=== PATIENT | male | born 1950 | race Caucasian/White ===

== ENCOUNTER 2018-11-15 13:03 | Observation (INO) | payer MEDICARE, OTHER, BC ==
--- NOTE | 2018-11-02 14:12 | HP ---
HISTORY AND PHYSICAL: DATE OF SURGERY: 11/15/18 DATE OF OFFICE VISIT: 11/02/18 SURGEON: Chacha Carrera MD.* (DICTATED BY ARPITA EDUARDO) PROCEDURE: Right total knee arthroplasty. CHIEF COMPLAINT: Right knee pain. HISTORY OF PRESENT ILLNESS: Mr. Royal is a 68-year-old gentleman with continued complaints of right knee pain despite conservative treatment. He has elected to proceed with the right total knee arthroplasty. PAST MEDICAL HISTORY: AFib, hypertension, high cholesterol, depression, GERD, melanoma stage 1A and sleep apnea. PAST SURGICAL HISTORY: Tonsillectomy, hernia repair, vasectomy, right ankle surgery, hydrocele surgery, right shoulder replacement, and cardioversion. CURRENT MEDICATIONS: 1. Vitamin B6. 2. Xarelto 20 mg a day. 3. Tikosyn 500 mcg 1 capsule twice a day. 4. Potassium chloride is 10 mEq daily. 5. Irbesartan 300 mg a day. 6. Atenolol 25 mg twice a day. 7. Nexium 40 mg daily. 8. Vitamin C. 9. Vitamin D3. 10. Vitamin B12. 11. Rosuvastatin calcium 5 mg a day. 12. Duloxetine 60 mg daily. ALLERGIES: No known drug allergies. FAMILY HISTORY: Diabetes, coronary artery disease, cancer, and ITP. SOCIAL HISTORY: He is a 68-year-old gentleman who lives with his . He does not smoke or use drugs. REVIEW OF SYSTEMS: A complete 14-point review of systems was reviewed with the patient. It was positive GERD. He denies the history of DVT, PE, hepatitis, HIV , or anesthesia problems. PHYSICAL EXAMINATION GENERAL: He is a well developed, well nourished, in no acute distress. VITAL SIGNS: He stands 75 inches tall, weighs 309 pounds. His blood pressure is 118/88, and his heart rate is 70. HEENT: Normocephalic, atraumatic. NECK: Supple. No palpable lymph nodes. PULMONARY: The lungs are clear to auscultation bilaterally. CARDIAC: Regular rate and rhythm. Strong S1 and S2. ABDOMEN: The abdomen is soft, nontender, and nondistended. NEUROLOGICAL: He is alert and oriented x3. MUSCULOSKELETAL: Right lower extremity: The skin is intact. There is no open wounds or abrasions. There is moderate effusion of the right knee joint and there is a varus deformity. Range of motion is 10 to 125 degrees of flexion with patellofemoral crepitus. He has tenderness along the medial joint line. His calf is soft and nontender. He is able to dorsiflex and plantar flex and has a 2+ dorsalis pedis pulse. ASSESSMENT AND PLAN: Mr. Royal is a 68-year-old gentleman with endstage osteoarthritis of the right knee. He has failed conservative treatment and elected to proceeded with the right total knee arthroplasty. The surgery is scheduled for 11/15/[address] Carrera discussed the risks and benefits of the surgery at today's visit and all of his questions were answered. He will follow up with Dr. Carrera 2 weeks after the surgery. He was instructed to stop his Xarelto on 11/11/18. ARPITA EDUARDO [id number]/[facility] #: [id number] MTDElena
[~2018-11-15 13:03] MED LIST: Buffered Lidocaine 1% SYRIN* 1 ML/SYRINGE INTRADERM ONE; Dexamethasone IV* 4 MG/ML 1 ML (4 MG) IV SLOW PU ONE; Famotidine IV* 10 MG/ML 2 ML (20 mg) IV ONE; Gabapentin CAP(*) 300 MG PO ONE; Lactated Ringers 1000 ML Bag* 1,000 ML IV SCH; Midazolam* 1 MG/ML 2 ML VIAL (2 MG) ONE; Tranexamic Acid 1,000 MG in NS 0.9% 50 ML* (outpatient use) IV SCH; celeCOXIB CAP* 200 MG PO ONE; fentaNYL* 50 MCG/ML 2 ML VIAL (100 MCG VIAL) ONE
[2018-11-15] MEDS ORDERED: Dexamethasone IV* 4 MG/ML 1 ML (4 MG) ONE (13:24)
[2018-11-15] MEDS ORDERED: Famotidine IV* 10 MG/ML 2 ML (20 mg) ONE (13:25)
[2018-11-15] MEDS ORDERED: celeCOXIB CAP* 200 MG ONE (13:25)
[2018-11-15] MEDS ORDERED: ceFAZolin 2 GM in NS PREMIX(*) 2 GM/100 ML BAG IVPB ONE (13:25)
[2018-11-15] MEDS ORDERED: Buffered Lidocaine 1% SYRIN* 1 ML/SYRINGE INTRADERM ONE (13:25)
[2018-11-15] MEDS ORDERED: Gabapentin CAP(*) 300 MG ONE (13:25)
[2018-11-15] MEDS ORDERED: ceFAZolin 1 GM ADVAN(*) 1 GM ADDV.VIAL IVPB ONE (13:25)
[2018-11-15] MEDS ORDERED: ROPIVACAINE 5 MG/ML 30 ML BTL (0.5%) ONE ×2 (13:56→14:34)
[2018-11-15] MEDS ORDERED: Lidocaine 1% MPF ** 5 ML VIAL ONE (13:56)
[2018-11-15] MEDS ORDERED: Midazolam* 1 MG/ML 2 ML VIAL (2 MG) ONE (15:08)
[2018-11-15] MEDS ORDERED: EPHEDrine (Pressors)* 50 MG/ML VIAL ONE ×2 (16:03→18:03)
[2018-11-15] MEDS ORDERED: Phenylephrine 40 MCG/ML SYRINGE ONE (16:25)
[2018-11-15] MEDS ORDERED: Acetaminophen IV 1GM/100ML * 1,000 MG/100 ML VIAL IVPB ONE (18:05)
[2018-11-15] MEDS ORDERED: Naloxone* 0.4 MG/ML 1 ML VIAL IV PRN (18:05)
[2018-11-15] MEDS ORDERED: DiMENhydriNATE IV* 50 MG/ML VIAL IV PUSH PRN (18:05)
[2018-11-15] MEDS ORDERED: HYDROmorphone INJ1* 1 MG/ML SYRINGE IV PRN (18:05)
[2018-11-15] MEDS ORDERED: traMADol TAB* 50 MG PO PRN (18:33)
[2018-11-15] MEDS ORDERED: Magnesium Hydroxide LIQ* 30 ML UDC PO PRN (18:33)
[2018-11-15] MEDS ORDERED: Cyclobenzaprine TAB* 10 MG PO PRN (18:33)
[2018-11-15] MEDS ORDERED: Morphine INJ* 2 MG/ML 1 ML SYRINGE (TWO MG - NEW SYRINGE VERSION) IV PRN (18:33)
[2018-11-15] MEDS ORDERED: Temazepam CAP* 15 MG PO PRN (18:33)
[2018-11-15] MEDS ORDERED: diPHENhydraMINE IV* 50 MG/ML 1 ml VIAL (BENADRYL) IV PRN (18:33)
[2018-11-15] MEDS ORDERED: oxyCODONE/Acetamin 5/325 MG* TAB PO PRN (18:33)
[2018-11-15] MEDS ORDERED: Ondansetron INJ* 2 MG/ML VIAL IV PRN (18:33)
[2018-11-15] MEDS ORDERED: oxyCODONE TAB* 5 MG TAB PO PRN (18:33)
[2018-11-15] MEDS ORDERED: Bisacodyl SUPP* 10 MG SUPP PR PRN (18:33)
[2018-11-15] MEDS ORDERED: Lactated Ringers 1000 ML Bag* 1,000 ML IV SCH (19:00)
--- NOTE | 2018-11-15 20:03 | OP ---
Operative Report - Blank - Operative Report Date of Operation: 11/15/18 Note: RANJIT LAZARO 1950 Date of Surgery: 11/15/18 Chacha Carrera MD Associate Professor Of Theatre: Iam PALM did help throughout the procedure with preparation of the knee, wound retraction, manipulation of the knee, and wound closure. Anesthesiologist: Dr. Price Anesthesia Type: Spinal Preoperative Diagnosis: Right severe degenerative osteoarthritis of the knee Postoperative Diagnosis: As above Procedure Performed: Right Total Knee Arthroplasty Tourniquet time: 56 minutes Complications: None Specimen: Bone and cartilage from the Right knee joint sent to pathology. Hardware Used: Cemented Olivarez and Nephew total knee hardware was used - For the femur a size 8 right legion posterior stabilized femoral component, for the tibia a size 8 right raymond II tibial baseplate, for the insert a size 9mm 7-8 posterior stabilized articular polyethylene insert, and for the patella a size 38 3-peg all poly patella. Brief History/Indication: RANJIT LAZARO was known in clinic and had a history of severe right knee pain and swelling. He failed conservative treatment with anti-inflammatories, pain pills, intra-articular injections and physical therapy. He elected to undergo right total knee arthroplasty due to continued pain and decreased quality of life. Radiographs showed severe end stage osteoarthritis of the knee with bone on bone contact. Informed consent was obtained from the patient. He understood the risks of surgery included but were not limited to: bleeding, infection, damage to nearby structures, intraoperative fracture, nerve palsy, failure of the hardware, early loosening, knee stiffness or loss of motion, anesthesia complications, stroke, heart attack , blood clot and . He wished to proceed. Intra-Operative Findings: Intraoperatively the patient was noted to have severe loss of cartilage in all 3 compartments of the knee. Description of the Procedure: RANJIT LAZARO was identified in the preanesthesia unit. His right knee was marked as the correct operative side. Informed consent was signed and placed in the chart. The patient was taken to the operating room and placed under anesthesia without complication. A baptiste catheter was placed. A tourniquet was placed on the right thigh. The right lower extremity was prepped and draped in the usual sterile fashion. Preoperative time-out was made to correctly identify the patient, side and site. Appropriate intraoperative antibiotics were given within one hour of incision. Tourniquet was inflated. A midline incision was made and carried sharply down to the extensor mechanism. A new 10 blade was used to make a standard medial parapatellar arthrotomy. The patella was subluxed laterally. Electrocautery was used to dissect soft tissue off the superomedial tibia to the midsagittal plane. The knee was flexed up. The anterior horn of the lateral meniscus and the ACL were sharply incised. A drill was used to enter the distal femur. The intramedullary distal femoral cutting guide was pinned on the distal femur. The oscillating saw was used to make the distal femoral cut. The external rotation guide was pinned on the distal femur and the distal femur was sized to a size 8. The size 8 multi-cutting jig was pinned on the distal femur. The oscillating saw was used to make the appropriate 4 chamfer cuts. Next the PCL was completely released. The extramedullary tibial cutting guide was pinned on the proximal tibia and the oscillating saw was used to make the proximal tibial cut perpendicular to the mechanical axis of the tibia. The bone was carefully removed. The knee was brought out into full extension. The spacer block was placed and had excellent fit with the knee in full extension. The medial and lateral ligaments were well balanced. The flexion and extension gaps were well balanced. The knee was flexed up. Lamina vault worker was placed both medially and laterally. Any remaining meniscus was removed with electrocautery. Curved osteotome was used to remove any posterior osteophytes. The tibial tray and drop suzan were placed and confirmed a satisfactory tibial cut. The size 8 right femoral trial was impacted onto the distal femur. This trial had excellent fit and stability. The box for the posterior stabilized implant was prepared using a box cut osteotome and a reamer. Next a tibial tray trial and 9 mm insert trial was placed. The knee was taken through a range of motion and had full extension to 130 degrees of flexion. Patellofemoral tracking was satisfactory. The patella was inverted and sized to a size 38. Three peg holes were drilled through the size 38 drill guide. The trial patella was placed and the knee was taken through a range of motion. There was satisfactory patellofemoral tracking. All trials were removed. The tibia was subluxed anteriorly and sized to a size 8. The proximal tibial was prepared with a size 8 keel punch. All bony cut surfaces were irrigated with sterile saline and dried. Final implants were cemented into place starting with the tibia, followed by the femur, and last the patella. A 9 mm insert trial was placed and the knee was brought into full extension. Tourniquet was turned down and the knee was copiously irrigated with sterile saline. Electrocautery was used to obtain meticulous hemostasis. Once the cement had fully cured, the insert trial was removed. Any excess cement was removed from around the hardware and capsule. Final insert chosen was a 9 mm posterior stabilized Raymond II articular insert size 7-8. Stability of the insert was checked and noted to be stable. The extensor mechanism was closed using number 1 vicryls. The rest of the incision was closed in a layered fashion using 0 and 2-0 vicryls. The skin was closed using 3-0 nylon suture. Sterile xeroform, 4x4s and webril were used to cover the incision. Tom wrap and cold pack were used to cover the dressings. The patients anesthesia was reversed without difficulty. He was taken to the PACU in stable condition. Intended weight-bearing will be as tolerated.
[2018-11-15] MEDS ORDERED: Atenolol TAB* 25 MG PO SCH (21:00)
--- NOTE | 2018-11-15 21:10 | CONS ---
[facility] MEDICINE CONSULTATION REPORT: DATE OF CONSULT: 11/15/18 PROVIDER: Jackie Melendez NP ATTENDING PHYSICIAN: Dr. Carrera. CONSULTING PHYSICIAN: Gareth Del Rosario MD (dictated by Jackie Melendez NP). REASON FOR CONSULT: Co-management of chronic medical conditions. HISTORY OF PRESENT ILLNESS: Mr. Royal is a 68-year-old male with a past medical history significant for hypertension; atrial fibrillation, on chronic Xarelto; hyperlipidemia; depression; GERD; stage I melanoma, status post removal; sleep apnea, who presented to [facility] for an elective right total knee arthroplasty with Dr. Carrera. Please see dictated H and P from ARPITA Peterson for complete details. In brief, the patient had an ongoing pain, failed conservative measures. Therefore, opted for right total knee arthroplasty with Dr. Carrera. In the immediate postoperative period, the patient has no complaints. He denies any pain. He denies any recent fever, chills, nausea, vomiting, diarrhea. Denies any abdominal pain. Denies any chest pain or shortness of breath. Denies cough or congestion. Due to his history of atrial fibrillation , hypertension, hyperlipidemia, and sleep apnea, we were asked to see the patient in consultation. PAST MEDICAL HISTORY: Significant for: 1. Hypertension. 2. AFib. 3. Hyperlipidemia. 4. Depression. 5. GERD. 6. Melanoma, stage I of the head status post removal. 7. Sleep apnea. PAST SURGICAL HISTORY: 1. Tonsillectomy. 2. Hernia repair. 3. Vasectomy. 4. Right ankle surgery. 5. Hydrocele surgery. 6. Right shoulder replacement. 7. Cardioversion. MEDICATIONS: Home medications include: 1. Vitamin B6. 2. Xarelto 20 mg p.o. daily. 3. Tikosyn 500 mcg p.o. b.i.d. 4. Potassium 10 mEq p.o. daily. 5. Atenolol 25 mg p.o. b.i.d. 6. Nexium 40 mg p.o. daily. 7. Vitamin C. 8. Vitamin D. 9. Vitamin B12. 10. Rosuvastatin 5 mg p.o. daily. 11. Duloxetine 60 mg p.o. daily. ALLERGIES: No known drug allergies. FAMILY HISTORY: Significant for diabetes, coronary artery disease. SOCIAL HISTORY: The patient denies any tobacco or illicit drug use. He does report occasional alcohol use. Surrogate decision maker in the event he is unable to make his own decisions is his , Hien. He is a full code. REVIEW OF SYSTEMS: An 11-point review of systems was completed. All pertinent positives are mentioned in the HPI, otherwise were negative. PHYSICAL EXAM: Vital Signs: Blood pressure was 112/77, heart rate is 62, respirations 16, O2 saturation 98% on room air, temperature was 97.7. HEENT: Head is atraumatic, normocephalic. Eyes: EOMs are intact. Sclerae anicteric and not pale. Oral mucosa appeared to be moist. Neck is supple. Lungs are clear to auscultation bilaterally. No wheezes, rales, or rhonchi. Cardiac: S1 , S2. Regular rate and rhythm. No murmurs, rubs, or gallops. Abdomen is soft and nontender. Bowel sounds are present x4. Extremities: He does have a dressing that is dry and intact to his right knee. Pedal pulses are +2 bilaterally. There is no clubbing or cyanosis. Neurologic: He is awake, alert , oriented x3. Speech is clear. Thought process is intact. There are no gross focal deficits. DIAGNOSTIC STUDIES/LAB DATA: CBC from 11/02/18, WBCs are 5.7, RBCs 5.32, hemoglobin 14.9, hematocrit 45, platelet count 157. INR was 1.38. Sodium 141, potassium 4.3, chloride 106, carbon dioxide was 31, anion gap was 4, BUN was 19 , creatinine 0.76, glucose was 92. Magnesium 2.1. ASTs were 30, ALTs were 33, alkaline phosphatase 79. IMPRESSION AND PLAN: Mr. Royal is a 68-year-old male with a past medical history significant for hypertension; atrial fibrillation, on chronic anticoagulation; hyperlipidemia; depression; GERD; history of stage I melanoma; and sleep apnea who presented for an elective right total knee arthroplasty with Dr. Carrera. In the immediate postoperative period, the patient has no complaints. Our recommendations are as follows: 1. Status post right total knee arthroplasty. Management per Orthopedics. PT/ OT per Orthopedics. Bowel regimen per Orthopedics. DVT prophylaxis per Orthopedics. Pain management per Orthopedics. 2. Atrial fibrillation. The patient should continue on his Tikosyn 500 mcg p.o. b.i.d. as previously prescribed at home. He should resume Xarelto as soon as possible, scheduled to start on 11/16/18. He will be placed on telemetry and he can resume his atenolol tomorrow morning. I will check a BMP this evening with a magnesium level prior to giving him his Tikosyn. 3. Hypertension. He should continue his atenolol 25 b.i.d. 4. Hyperlipidemia. He should continue on his rosuvastatin 5 mg p.o. daily. 5. Gastroesophageal reflux disease. He should continue on Nexium 40 mg p.o. daily. 6. DVT prophylaxis. He will resume Xarelto tomorrow morning. 7. Diet. He should have a heart healthy diet. 8. Code status. He is a full code. TIME SPENT: Time spent on this consultation was approximately 45 minutes, greater than half the time was spent at the bedside reviewing the events leading thus far to this hospitalization, performing physical exam, and reviewing my plan of care I have discussed this with my attending, Dr. Gareth Del Rosario, he is in agreement with my plan. JACKIE MELENDEZ, ARNALDO [id number]/[facility] #: [id number] TANISHA
[2018-11-15] MEDS: Docusate CAP* 100 MG PO SCH (21:31)
[2018-11-15] MEDS: Magnesium Hydroxide LIQ* 30 ML UDC PO SCH (21:31)
[2018-11-15] MEDS: Ferrous Sulfate TAB* 325 MG PO SCH (21:31)
[2018-11-15] MEDS: Dofetilide CAP* 500 MCG PO SCH (21:35)
[2018-11-15] MEDS: Acetaminophen TAB* 325 MG PO SCH (21:35)
[2018-11-15] MEDS: ceFAZolin 1 GM ADVAN(*) 1 GM in NS 0.9% 50 ML* 50 ML IVPB SCH (23:36)
[2018-11-16] MEDS: Acetaminophen TAB* 325 MG PO SCH ×2 (05:57→13:25)
[2018-11-16 05:58] LABS: Hematocrit 37 % (42-52); Hemoglobin 12.5 g/dL (14.0-18.0); Mean Platelet Volume 8.4 fL (7.4-10.4); Platelet Count 144 10^3/uL (150-450)
[2018-11-16 06:08] LABS: BUN/Creatinine Ratio 20.3 (8-20); Calcium 8.9 mg/dL (8.6-10.3); EGFR African American 117.7 (>60); EGFR Non-African American 97.2 (>60); Magnesium 1.7 mg/dL (1.9-2.7); Potassium 4.1 mmol/L (3.5-5.0)
[2018-11-16] MEDS ORDERED: Rivaroxaban TAB(*) 20 MG TAB PO SCH (08:30)
[2018-11-16] MEDS ORDERED: Ascorbic Acid TAB* 500 MG PO SCH (09:00)
[2018-11-16] MEDS ORDERED: Pantoprazole TAB * 40 MG TAB PO SCH (09:00)
[2018-11-16] MEDS ORDERED: Cholecalciferol TAB* 1000 UNITS PO SCH (09:00)
[2018-11-16] MEDS ORDERED: Atenolol TAB* 25 MG PO SCH (09:00)
[2018-11-16] MEDS ORDERED: Vitamin THERAPEUTIC TAB PO SCH (09:00)
[2018-11-16] MEDS ORDERED: Atorvastatin* 10 MG TAB PO SCH (09:00)
[2018-11-16] MEDS ORDERED: Losartan TAB* 25 MG PO SCH (09:00)
[2018-11-16] MEDS ORDERED: Potassium Chlor TAB* 10 MEQ TAB.ER PO SCH (09:00)
[2018-11-16] MEDS ORDERED: DULoxetine DR CAP* 60 MG CAP.DR PO SCH (09:00)
[2018-11-16] MEDS ORDERED: Cyanocobalamin TAB* 500 MCG PO SCH (09:00)
[2018-11-16] MEDS: ceFAZolin 1 GM ADVAN(*) 1 GM in NS 0.9% 50 ML* 50 ML IVPB SCH ×2 (09:05→15:40)
[2018-11-16] MEDS: Ferrous Sulfate TAB* 325 MG PO SCH (09:05)
[2018-11-16] MEDS: oxyCODONE/Acetamin 5/325 MG* TAB PO PRN ×3 (09:06→18:45)
[2018-11-16] MEDS: Docusate CAP* 100 MG PO SCH (09:06)
[2018-11-16] MEDS: Dofetilide CAP* 500 MCG PO SCH (09:10)
[2018-11-16] MEDS: Magnesium Hydroxide LIQ* 30 ML UDC PO SCH (09:10)
--- NOTE | 2018-11-16 13:11 | PN ---
Progress Note - Progress Note Date of Service: 11/16/18 SOAP: Subjective: []Pt seen and examined at bedside. He feels well without CP, SOB, dizziness, nausea. Feels well but has 12 stairs per flight with 3 flights each at home. Objective: [] Gen: Appears well, NAD RLE: Right knee dressing CDI, thigh soft, DF/PF intact, DP2+, sensation intact to light touch distally Calves supple and nontender without erythema, edema or palpable cords Assessment: [] POD 1 sp right total knee replacement Plan: []WBAT PT/OT eliquis 2.5 mg po BID DC home today or tomorrow - depends how well he does with PT considering home environment with many stairs Vital Signs Temp 98.1 F 11/16/18 11:14 Pulse 73 11/16/18 11:14 Resp 16 11/16/18 11:14 BP 136/88 11/16/18 11:14 Pulse Ox 94 11/16/18 11:14 Intake & Output 11/15/18 11/16/18 11/16/18 18:59 06:59 18:59 Intake Total 1960 590 Output Total 3100 200 Balance -1140 390 Weight 305 lb 6.4 oz Intake: Oral 1960 590 Output: Urine 1000 200 Zavala 2100 Other: # Bowel Movements 0 Laboratory Last Values Hgb 12.5 g/dL (14.0-18.0) L 11/16/18 05:10 Hct 37 % (42-52) L 11/16/18 05:10 Plt Count 144 10^3/uL (150-450) L 11/16/18 05:10 MPV 8.4 fL (7.4-10.4) 11/16/18 05:10 Sodium 138 mmol/L (135-145) 11/16/18 05:10 Potassium 4.1 mmol/L (3.5-5.0) 11/16/18 05:10 Chloride 106 mmol/L (101-111) 11/16/18 05:10 Carbon Dioxide 25 mmol/L (22-32) 11/16/18 05:10 Anion Gap 7 mmol/L (2-11) 11/16/18 05:10 BUN 16 mg/dL (6-24) 11/16/18 05:10 Creatinine 0.79 mg/dL (0.67-1.17) 11/16/18 05:10 Est GFR ( Amer) 117.7 (>60) 11/16/18 05:10 Est GFR (Non-Af Amer) 97.2 (>60) 11/16/18 05:10 BUN/Creatinine Ratio 20.3 (8-20) H 11/16/18 05:10 Glucose 173 mg/dL (70-100) H 11/16/18 05:10 Calcium 8.9 mg/dL (8.6-10.3) 11/16/18 05:10 Magnesium 1.7 mg/dL (1.9-2.7) L 11/16/18 05:10
[2018-11-16 15:53] VITALS: BP 134/63
[2018-11-16] MEDS ORDERED: Pyridoxine TAB* 50 MG PO SCH (18:00)
--- NOTE | 2018-11-16 18:08 | DS ---
Orthopedic Discharge Summary - Discharge Summary Date of Admission:11/15/18 Date of Discharge: 11/16/18 Date of Surgery: 11/15/18 Attending Orthopedic Provider: Dr Carrera Pre-operative Diagnosis: right knee osteoarthritis Operative Procedure: right total knee replacement Disposition of Patient: home Condition of Patient: stable History: RANJIT LAZARO is a 68 year old M with years of increasingly severe right knee pain. Patient has failed conservative management and has elected to undergo a right total knee replacement Hospital Course: RANJIT was admitted to [facility] on 11/15/18. Patient underwent a right total knee replacement without complication followed by a brief recovery in PACU and transfer to the Short Stay Surgical Unit in stable condition. Our hospitalist service, physical therapy and occupational therapy also participated in this patients care. Post-op day 1: patient was alert and in no acute distress. Dressing was changed, incision was clean, dry and intact. Operative extremity dorsiflexion and plantarflexion intact, sensation intact to light touch distally. Patient was deemed to be medically and orthopedically stable for discharge. Physical therapy goals were met. Home Medications Medication Instructions Recorded Confirmed Type Atenolol TAB* [Tenormin TAB* 25 MG] 25 mg PO BID 02/26/12 11/15/18 History Dofetilide CAP* [Tikosyn CAP*] 0.5 mg PO BID 09/02/12 11/15/18 History Rivaroxaban TAB(*) [Xarelto 20 mg] 20 mg PO QAM 06/30/16 11/15/18 History Acetaminophen TAB* [Tylenol TAB*] 3 tab PO ONCE PRN 11/02/18 11/15/18 History Ascorbic Acid TAB* [Vitamin C 1,000 mg PO QAM 11/02/18 11/15/18 History TAB*] Cholecalciferol CAP/TAB(NF) 5,000 unit PO QAM 11/02/18 11/15/18 History [Vitamin D3 CAP/TAB (NF)] Cyanocobalamin TAB* [Vitamin B12 1,000 mcg PO QAM 11/02/18 11/15/18 History TAB*] DULoxetine DR CAP* [Cymbalta CAP*] 60 mg PO QAM 11/02/18 11/15/18 History Esomeprazole Magnesium [Nexium] 40 mg PO QAM 11/02/18 11/15/18 History Irbesartan 300 mg PO QAM 11/02/18 11/15/18 History Potassium Chloride [Klor-Con 10] 10 meq PO QAM 11/02/18 11/15/18 History Pyridoxine TAB* [Vitamin B6 TAB*] 100 mg PO QPM 11/02/18 11/15/18 History Rosuvastatin Calcium 5 mg PO QAM 11/02/18 11/15/18 History Acetaminophen TAB* [Tylenol TAB*] 975 mg PO Q8H tab 11/16/18 Rx Docusate CAP* [Colace Cap*] 100 mg PO BID PRN #90 cap 11/16/18 Rx oxyCODONE/Acetamin 5/325 MG* 1 tab PO Q4H PRN tab MDD 10 11/16/18 Rx [Percocet 5/325 TAB*] oxyCODONE/Acetamin 5/325 MG* 2 tab PO Q4H PRN #70 tab MDD 10 11/16/18 Rx [Percocet 5/325 TAB*] Discharge Instructions following Orthopedic Surgery: Activity: * Weight Bearing as tolerated * Continue physical therapy and occupational therapy exercises as shown * Home PT Wound care: * OK to shower on post-op day 3, no bathing, swimming, or submerging wound. * Use gentle soap, pat dry. Cover with gauze, KATHRYN wrap or tape. * Visiting home nurse to do wound checks. Call Orthopedic office for: * Increased drainage * Redness * Increased pain * Fever Go to ER with shortness of breath or chest pain. Diet: * Regular diet * Increase fluids and fiber to prevent constipation. * Continue to use stool softeners, call office if no bowel motion within 48 hours. Medications See Home Medication List in your packet for medications that you should take after discharge. DVT Prophylaxis: Xarelto resume usual home dosing Pain Control: Percocet Dosin/325 mg 1-2 tabs by mouth every 4-6 hours as needed for pain. Maximum of 10 tabs per day. Hold for sedation. Wean off as soon as pain allows Please note that Percocet contains Tylenol (acetaminophen). Maximum daily dose of Tylenol is 4000 mg from all sources. Antibiotics are required prior to any dental work. FOLLOW UP: Follow up with Dr. Coy] Within 10-14 days, call for appointment Please call our office with any questions or concerns ([phone])
[2018-11-16] MEDS ORDERED: Magnesium Sulfate 1 GM IV* 1 GM/100 ML BAG IV ONE (18:44)
--- NOTE | 2018-11-16 18:47 | PN ---
Hospitalist Progress Note Date of Service: 11/16/18 Chart reviewed, patient is POD1 total knee, VS stable, no acute overnight events. Magnesium slightly low, will replete with 1 gm IV. Will continue to follow distantly. Plan per ortho is for patient to be discharged tomorrow.
== END 2018-11-16 19:00 | disposition home or self-care (01) ==
LOC: AA 13:03 → INTOOBSV 13:03 → SSU 20:16
PROVIDERS: ADMIT Orthopaedic Surgery Adult Reconstructive Orthopaedic Surgery; ATTEND Orthopaedic Surgery Adult Reconstructive Orthopaedic Surgery
DX: M17.11 Unilateral primary osteoarthritis, right knee (principal); Z79.899 Other long term (current) drug therapy; I10 Essential (primary) hypertension; E78.00 Pure hypercholesterolemia, unspecified; I48.0 Paroxysmal atrial fibrillation; K21.9 Gastro-esophageal reflux disease without esophagitis; G47.30 Sleep apnea, unspecified; C43.9 Malignant melanoma of skin, unspecified; Z79.01 Long term (current) use of anticoagulants; E78.2 Mixed hyperlipidemia; F32.0 Major depressive disorder, single episode, mild
CPT/HCPCS: 36415; 80048; 83735; 85014; 85018; 85049; 96374; 96376; A9270-GY; C1776; G0378; G8978-GP-CJ; G8979-GP-CI; J0690; J1100; J2250; J2270; J2795; J3010; J3475

== ENCOUNTER 2019-05-12 17:06 | Emergency (ER) | payer MEDICARE, BC, OTHER ==
[2019-05-12 18:47] LABS: ABS Eosinophils 0.2 10^3/ul (0-0.6); ABS Lymphocytes 1.3 10^3/ul (1.0-4.8); ABS Monocytes 0.6 10^3/ul (0-0.8); ABS Neutrophils 3.8 10^3/ul (1.5-7.7); Eosinophil % 4.1 %; Hematocrit 45 % (42-52); Lymphocyte % 21.4 %; Mean Corpuscular HGB Conc 33 g/dL (31-36); Mean Corpuscular Hemoglobin 28 pg (27-31); Mean Corpuscular Volume 83 fL (80-94); Mean Platelet Volume 8.1 fL (7.4-10.4); Nucleated Red Blood Cells % 0.1; Platelet Count 189 10^3/uL (150-450); Red Blood Count 5.41 10^6 /uL (4.18-5.48); Red Cell Distribution Width 17 % (10-15); White Blood Count 5.9 10^3/uL (3.5-10.8)
[2019-05-12 18:58] LABS: Albumin/Globulin Ratio 1.3 (1-3); BUN/Creatinine Ratio 19.8 (8-20); Calcium 9.1 mg/dL (8.6-10.3); EGFR African American 99.7 (>60); EGFR Non-African American 82.4 (>60); Globulin 3.2 g/dL (2-4); Magnesium 1.9 mg/dL (1.9-2.7); Total Bilirubin 0.8 mg/dL (0.2-1.0); Total Protein 7.2 g/dL (6.4-8.9)
[2019-05-12 19:00] LABS: Troponin I 0.01 ng/mL (<0.03)
--- NOTE | 2019-05-12 19:33 | ED ---
HPI Cardiac - HPI Summary HPI Summary: 69 y/o male presented to [facility] complaining of an episode of suspected afib beginning 04/24/19. In addition to a "feeling like [he] is in Afib," he is feeling nauseous and hungry. Pt denies pain, SOB, swelling, CHF symptoms, changes in eating/drinking and fever. He notes he can exert himself at baseline , citing the example of being able to walk up and down stairs. Pt has a Hx of Afib since his first episode in October of 1991 and has been cardioverted 5-6 times between and 2009. He notes he has occasional 24-36 hour episodes that revert without assistance. He was recommended by Dr. Cesar to go to the ER if he was in Afib for more than 36 hours, and another physician told him not to go into the ER if the Afib was not bothering him. He states that when he is in Afib he is not bothered by it and can go to work normally, noting that his work is on a computer and does not require physical exertion. 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 Pt notes Hx of Afib (above), HTN, GERD, sleep apnea, depression, hypokalemia, past surgical history: knee replacement 6 months ago, a vasectomy when he was 4 , a tonsillectomy, right shoulder replacement, and a talus Fx. Pt takes Tikosyn, Nexium, Xarelto, Avapro, Tylenol, and uses a CPAP machine. Pt notes FHx of sleep apnea and Afib. He does not smoke or use marijuana and consumes about 1 beer per week. - History of Current Complaint Chief Complaint: EDDysrhythmPalp Stated Complaint: AFIB PER PT Time Seen by Provider: 05/12/19 19:26 Hx Obtained From: Patient Onset/Duration: Started Weeks Ago, Still Present Timing: Constant Current Severity: None Pain Intensity: 0 Pain Scale Used: 0-10 Numeric Character: Irregular Aggravating Factor(s): Nothing Associated Signs and Symptoms: Positive: Nausea, Other: - positive - hunger; negative - decreased oral intake, swelling, CHF symptoms. Negative: Shortness of Breath, Fever Related History: Similar Episode/Dx as: - Afib - Additional Pertinent History Primary Care Physician: [id number] - Allergy/Home Medications Allergies/Adverse Reactions: Allergies Allergy/AdvReac Type Severity Reaction Status Date / Time No Known Allergies Allergy Verified 05/12/19 17:40 Home Medications: Home Medications Acetaminophen [Acetaminophen Extra Strength] 1,000 mg PO Q4HR PRN 05/12/19 [ History Confirmed 05/12/19] Dofetilide CAP* [Tikosyn CAP*] 500 mcg PO BID 05/12/19 [History Confirmed ] Esomeprazole(NF) [NexIUM(NF)] 40 mg PO DAILY 05/12/19 [History Confirmed ] Irbesartan (NF) [Avapro (NF)] 300 mg PO DAILY 05/12/19 [History Confirmed ] Potassium Chlor TAB* [Klor Con ER TAB*] 10 meq PO DAILY 05/12/19 [History Confirmed 05/12/19] Rosuvastatin (NF) [Crestor (NF)] 5 mg PO DAILY 05/12/19 [History Confirmed 05/12] metroNIDAZOLE * [Flagyl] 500 mg PO Q8H PRN 05/12/19 [History Confirmed 05/12/19] PMH/Surg Hx/FS Hx/Imm Hx Previously Healthy: Yes Endocrine/Hematology History: Reports: Hx Anticoagulant Therapy Cardiovascular History: Reports: Hx Atrial Fibrillation, Hx Hypercholesterolemia , Hx Hypertension Denies: Hx Pacemaker/ICD, Other Cardiovascular Problems/Disorders Respiratory History: Reports: Hx Sleep Apnea Denies: Other Respiratory Problems/Disorders GI History: Reports: Hx Gastroesophageal Reflux Disease, Hx Hiatal Hernia Denies: Other GI Disorders History: Reports: Other Problems/Disorders - MICROSCOPIC BLOOD IN URINE- FOLLOWS DR. WEN FOR Musculoskeletal History: Reports: Hx Arthritis - KNEES, RIGHT SHOULDER HISTORY- HAS HAD REPLACEMENT, Hx Orthopedic Injury - chip fx, (right) talus Denies: Hx Rheumatoid Arthritis, Hx Osteoporosis, Other Musculoskeletal History Sensory History: Reports: Hx Contacts or Glasses - INSTRUCTS GIVEN Denies: Hx Hearing Aid Opthamlomology History: Reports: Hx Contacts or Glasses - INSTRUCTS GIVEN Neurological History: Denies: Other Neuro Impairments/Disorders Psychiatric History: Reports: Hx Depression - ON MEDICATION FOR Denies: Hx Panic Disorder, Other Psychiatric Issues/Disorders - Cancer History Cancer Type, Location and Year: malignant melanoma scalp & neck - Surgical History Surgery Procedure, Year, and Place: tonsils 1952. hernia 1954. talus fracture rt foot 1968. hydrocele repair . melanoma removed from head 2008 Hx Anesthesia Reactions: No Infectious Disease History: No Infectious Disease History: Denies: Traveled Outside the [place] in Last 30 Days - Family History Known Family History: Positive: Other - sleep apnea, afib - Social History Alcohol Use: Rare Substance Use Type: Reports: None Hx Tobacco Use: No Smoking Status (MU): Never Smoked Tobacco Do You Chew or Dip Tobacco: No - Additional Comments History Additional Comments: PMHX: Afib HTN GERD sleep apnea depression hypokalemia FHx sleep apnea Afib. Review of Systems - ROS Summary Review of Systems Summary: Pt takes Tikosyn, Nexium, Xarelto, Avapro, Tylenol, and uses a CPAP machine. Negative: Fever Positive: Other - negative CHF symptoms. Negative: Chest Pain Negative: Shortness Of Breath Positive: Nausea, Other - positive - hunger; negative - decreased oral intake Negative: Edema All Other Systems Reviewed And Are Negative: Yes Physical Exam - Summary Physical Exam Summary: General: Well-developed, Obese (MALE). No acute distress. HEENT: Normocephalic, Atraumatic. Eyes: Conjuctiva normal, PERRL. Oropharynx: Clear, mucous membranes moist, (-) exudates. Neck: Soft, FROM, (-) lymphadenopathy, (-) thyromegaly, (-) JVD. Cardiovascular: Irregularly irregular rhythm, (-) murmur. Lungs: Clear to auscultation bilaterally (-) wheezes, (-) rales, (-) rhonchi. Abdomen: Soft, non-tender, non-distended, (-) organomegaly, normal bowel sounds. Back: (-) CVA tenderness Extremities: No edema. Skin: Warm, dry, (-) rash. Neuro: Alert and oriented x3, no focal deficits. Psychiatric: Mood normal, affect normal. Triage Information Reviewed: Yes Vital Signs On Initial Exam: Initial Vitals Temp Pulse Resp BP Pulse Ox 98.1 F 111 19 133/106 96 05/12/19 17:32 05/12/19 17:32 05/12/19 17:32 05/12/19 17:32 01/17/20 17:32 Vital Signs Reviewed: Yes Procedures - Sedation Patient Received Moderate/Deep Sedation with Procedure: No Diagnostics - Vital Signs Vital Signs Temp Pulse Resp BP Pulse Ox 05/12/19 17:32 98.1 F 111 19 133/106 96 - Laboratory Lab Results: Lab Results 05/12/19 05/12/19 Range/Units 18:28 18:28 WBC 5.9 (3.5-10.8) 10^3/uL RBC 5.41 (4.18-5.48) 10^6 /uL Hgb 15.0 (14.0-18.0) g/dL Hct 45 (42-52) % MCV 83 (80-94) fL MCH 28 (27-31) pg MCHC 33 (31-36) g/dL RDW 17 H (10-15) % Plt Count 189 (150-450) 10^3/uL MPV 8.1 (7.4-10.4) fL Neut % (Auto) 63.6 % Lymph % (Auto) 21.4 % [place] % (Auto) 10.1 % Eos % (Auto) 4.1 % Baso % (Auto) 0.8 % Absolute Neuts (auto) 3.8 (1.5-7.7) 10^3/ul Absolute Lymphs (auto) 1.3 (1.0-4.8) 10^3/ul Absolute Monos (auto) 0.6 (0-0.8) 10^3/ul Absolute Eos (auto) 0.2 (0-0.6) 10^3/ul Absolute Basos (auto) 0.0 (0-0.2) 10^3/ul Absolute Nucleated RBC 0.0 10^3/ul Nucleated RBC % 0.1 Sodium 140 (135-145) mmol/L Potassium 4.0 (3.5-5.0) mmol/L Chloride 106 (101-111) mmol/L Carbon Dioxide 29 (22-32) mmol/L Anion Gap 5 (2-11) mmol/L BUN 18 (6-24) mg/dL Creatinine 0.91 (0.67-1.17) mg/dL Est GFR ( Amer) 99.7 (>60) Est GFR (Non-Af Amer) 82.4 (>60) BUN/Creatinine Ratio 19.8 (8-20) Glucose 109 H (70-100) mg/dL Calcium 9.1 (8.6-10.3) mg/dL Magnesium 1.9 (1.9-2.7) mg/dL Total Bilirubin 0.80 (0.2-1.0) mg/dL AST 28 (13-39) U/L ALT 28 (7-52) U/L Alkaline Phosphatase 86 (34-104) U/L Troponin I 0.01 (<0.03) ng/mL Total Protein 7.2 (6.4-8.9) g/dL Albumin 4.0 (3.2-5.2) g/dL Globulin 3.2 (2-4) g/dL Albumin/Globulin Ratio 1.3 (1-3) Result Diagrams: 05/12/19 18:28 05/12/19 18:28 Lab Statement: Any lab studies that have been ordered have been reviewed, and results considered in the medical decision making process. - Radiology cxr Radiology Interpretation Completed By: ED Physician Summary of Radiographic Findings: No infiltrate. No pleural effusion. No significant changes. This x-ray was reviewed and interpreted by Dr. Arellano pending official read. - EKG 1830 Cardiac Rate: NL EKG Rhythm: Atrial Fibrillation Summary of EKG Findings: EKG at 1830 reveals Afib with rate of 84 BPM, no acute changes, no ischemic changes. No STEMI. This EKG was reviewed and interpreted by Dr. Pool. Re-Evaluation - Re-Evaluation First Eval Re-Evaluation Time: 21:15 Comment: The information obtained from consults was discussed with the pt, who decided he will see Dr. Cesar on 05/15/19. Discussed symptoms that warrant immediate return to ED. Disposition - Course Course Of Treatment: 69-year-old male presents from home with atrial fibrillation. He is a long-standing history of A. fib. Was cardioverted and started on T [place] couple years ago. He does go in and out of A. fib occasionally. However he states that normally doesn't last more than 24-36 hours. At this time he's been in atrial fibrillation for over 2 weeks. He is not short of breath. Denies any chest pain. However he states he is feeling nauseated and somewhat anxious. Referred here by cardiology. Patient is quite stable. Physical exam with no concerning findings. Workup essentially negative. Discussed with cardiology on-call. Dr. Garcia advises that the patient could be admitted to the hospitalist. I could attempt to do a cardioversion in the morning in the ICU if resources were available. He could not guarantee that. He may have to wait till Wednesday. As patient is minimally symptomatic. Patient decided to go home at this time and follow-up with his nurse's assistant on Wednesday. He agreed to return for any worsening symptoms immediately. - Diagnoses Provider Diagnoses: Paroxysmal A-fib - Physician Notifications Discussed Care Of Patient With: Rosaline Brand Time Discussed With Above Provider: 21:02 Instructed by Provider To: Other - Pt case was discussed with Dr. Brand, who was not sure if pt needed to be admitted. At 2110 pt case was discussed with Dr. Garcia, who will perform a cardioversion in the morning if he can get a team together, but is concerned about staffing issues; he states the pt can also see Dr. Cesar on 05/15/19. Discharge ED - Sign-Out/Discharge Documenting (check all that apply): Patient Departure - dc - Discharge Plan Condition: Stable Disposition: HOME Patient Education Materials: A-fib (Atrial Fibrillation) (ED) Referrals: Jatinder Small MD [Primary Care Provider] - Additional Instructions: Follow up with Dr. Cesar in cardiology on Wednesday. If you experience new or worsening symptoms please return to the ER. - Billing Disposition and Condition Condition: STABLE Disposition: Home - Attestation Statements Document Initiated by Lexie: Yes Documenting Scribe: Graham Urban Provider For Whom Lexie is Documenting (Include Credential): Lilian Arellano MD Scribe Attestation: Graham Blair, scribed for Lilian Arellano MD on 05/12/19 at 2149. Scribe Documentation Reviewed: Yes Provider Attestation: The documentation as recorded by the Graham townsend accurately reflects the service I personally performed and the decisions made by me, Lilian Arellano MD Status of Scribe Document: Viewed
[2019-05-12 19:43] LABS: INR 1.56 (0.82-1.09)
[2019-05-12 20:04] LABS: TSH (Thyroid Stimulating Horm) 1.03 mcIU/mL (0.34-5.60)
[2019-05-12 21:48] VITALS: BP 126/82
--- NOTE | 2019-05-12 21:58 | CONS ---
BRIEF NOTE: DATE OF CONSULT: 05/12/2019 REASON FOR CONSULT: I was called by the emergency room physician, Dr. Arellano, about a possible admission. HISTORY OF PRESENT ILLNESS: This patient has history of atrial fibrillation, has had cardioversion in the past and is currently on Tikosyn. Dr. Arellano wanted me to admit the patient possibly for atrial fibrillation. I advised to Dr. Arellano to possibly call machines technician to see if they would like to cardiovert him here or what they would do and then after that I can arrange for admission if need be. Dr. Arellano spoke with the machines technician on-call, Dr. Garcia , who recommended possible cardioversion during the hospital stay; however, he is unsure if they could happen in a timely fashion tomorrow due to it being a weekend. Dr. Arellano then proceeded to discuss the options with the patient and the patient opted to go home. After this, Dr. Arellano informed me that the patient will be going home and I will not have to admit the patient. Because the patient is getting discharged without my being seen, I will not need to see the patient or admit him or have any further contacts with the patient. [id number]/CPS #: [id number]
== END 2019-05-12 21:30 | disposition home or self-care (01) ==
LOC: ED 17:06
DX: I48.0 Paroxysmal atrial fibrillation (principal); I10 Essential (primary) hypertension; K21.9 Gastro-esophageal reflux disease without esophagitis; E78.00 Pure hypercholesterolemia, unspecified; F32.9 Major depressive disorder, single episode, unspecified; Z79.01 Long term (current) use of anticoagulants; Z79.899 Other long term (current) drug therapy; Z96.651 Presence of right artificial knee joint; Z96.611 Presence of right artificial shoulder joint
CPT/HCPCS: 36415; 71045; 80053; 83735; 84443; 84484; 85025; 85610; 93005; 99283

== ENCOUNTER 2020-09-08 09:46 | Inpatient (IN) ==
[2020-09-08] MEDS ORDERED: NS 0.9% 1000 ml BAG 1,000 ML IV.FLUID IV ONE (10:22)
[2020-09-08 10:45] LABS: Hematocrit 44 % (42-52); Hemoglobin 15.1 g/dL (14.0-18.0); Mean Corpuscular HGB Conc 34 g/dL (31-36); Mean Corpuscular Hemoglobin 28 pg (27-31); Mean Corpuscular Volume 84 fL (80-94); Red Blood Count 5.31 10^6 /uL (4.18-5.48); Red Cell Distribution Width 16 % (10-15); White Blood Count 1.4 10^3/uL (3.5-10.8)
[2020-09-08 10:51] LABS: Activated Partial Thrombo Time 35.9 seconds (26.0-38.0); INR 1.74 (0.82-1.09)
[2020-09-08 11:00] LABS: ALT 54 U/L (7-52); AST 208 U/L (13-39); Albumin 3.7 g/dL (3.2-5.2); Albumin/Globulin Ratio 1.1 (1-3); Alkaline Phosphatase 52 U/L (34-104); Anion Gap 11 mmol/L (2-11); Blood Urea Nitrogen 26 mg/dL (6-24); C Reactive Protein 285.54 mg/L (<8.01); CO2 Carbon Dioxide 24 mmol/L (22-32); Chloride 93 mmol/L (101-111); EGFR African American 60.4 (>60); Globulin 3.4 g/dL (2-4); Glucose 117 mg/dL (70-100); Potassium 3.3 mmol/L (3.5-5.0); Sodium 128 mmol/L (135-145); Total Protein 7.1 g/dL (6.4-8.9)
[2020-09-08 11:02] LABS: Troponin I 0.06 ng/mL (<0.03)
[2020-09-08 11:09] LABS: ABS Lymphocytes 0.2 10^3/ul (1.0-4.8); ABS Monocytes 0.1 10^3/ul (0-0.8); Eosinophil % 0.1 %; Lymphocyte % 16.3 %; Mean Platelet Volume 10.2 fL (7.4-10.4); Nucleated Red Blood Cells % 1.3; Platelet Count 27 10^3/uL (150-450)
[2020-09-08] MEDS ORDERED: Cefepime 1 GM in Dextrose 1 GM/50 ML BAG IV ONE (12:15)
[2020-09-08] MEDS ORDERED: Ondansetron 4 mg VIAL 2 MG/ML 2 ml VIAL IV PRN (13:09)
[2020-09-08] MEDS ORDERED: Magnesium Hydroxide LIQ 30 ML UDC PO PRN (13:09)
[2020-09-08] MEDS ORDERED: Vancomycin 2,000 MG in NS 0.9% 500 ml BAG 500 ML IVPB ONE (13:30)
[2020-09-08] MEDS ORDERED: Vancomycin per Pharmacy 1 EA NOTE FOLLOW UP SCH (14:00)
[2020-09-08 15:36] LABS: Troponin I 0.05 ng/mL (<0.03)
[2020-09-08] MEDS: Lactated Ringers 1000 ml BAG 1,000 ML IV SCH (15:57)
[2020-09-08] MEDS: DOXYcycline 100 MG in NS 0.9% 250 ml 250 ML IVPB SCH (17:39)
[2020-09-08] MEDS ORDERED: Lactated Ringers 1000 ml BAG 1,000 ML IV ONE (17:48)
[2020-09-08] MEDS: Cefepime 2 GM in Dextrose 2 GM/50 ML BAG IV SCH (21:21)
[2020-09-09] MEDS ORDERED: Potassium Chlor 20 meq TAB.ER PO ONE (00:28)
[2020-09-09] MEDS ORDERED: Magnesium Sulfate IV 1GM/100ML 1 GM/100 ML BAG IV ONE (00:28)
[2020-09-09] MEDS ORDERED: Vancomycin 1,500 MG in NS 0.9% 250 ml 250 ML IVPB SCH (01:00)
[2020-09-09] MEDS: Cefepime 2 GM in Dextrose 2 GM/50 ML BAG IV SCH ×2 (04:18→11:45)
[2020-09-09] MEDS: DOXYcycline 100 MG in NS 0.9% 250 ml 250 ML IVPB SCH ×2 (05:24→18:23)
[2020-09-09 05:51] LABS: Hematocrit 38 % (42-52); Hemoglobin 12.9 g/dL (14.0-18.0); Mean Corpuscular HGB Conc 34 g/dL (31-36); Mean Corpuscular Hemoglobin 29 pg (27-31); Mean Corpuscular Volume 84 fL (80-94); Mean Platelet Volume 9.8 fL (7.4-10.4); Platelet Count 27 10^3/uL (150-450); Red Cell Distribution Width 16 % (10-15); White Blood Count 1.6 10^3/uL (3.5-10.8)
[2020-09-09 05:54] LABS: Albumin 2.8 g/dL (3.2-5.2); Albumin/Globulin Ratio 1.1 (1-3); Calcium 7.9 mg/dL (8.6-10.3); EGFR Non-African American 84.3 (>60); Globulin 2.6 g/dL (2-4); Magnesium 2.2 mg/dL (1.9-2.7); Potassium 3.5 mmol/L (3.5-5.0); Total Bilirubin 1.2 mg/dL (0.2-1.0); Total Protein 5.4 g/dL (6.4-8.9)
[2020-09-09 06:15] LABS: ABS Lymphocytes 0.6 10^3/ul (1.0-4.8); ABS Monocytes 0.2 10^3/ul (0-0.8); Eosinophil % 0.1 %; Lymphocyte % 36.8 %; Nucleated Red Blood Cells % 0.1
[2020-09-09 06:17] LABS: ABS Neutrophils 0.8 10^3/ul (1.5-7.7)
[2020-09-09] MEDS ORDERED: Perflutren Lipid Microsphere 3 ML VIAL ONE (14:02)
[2020-09-09 17:23] LABS: Urine Appearance Clear; Urine Bilirubin Negative (Negative); Urine Blood Negative (Negative); Urine Color Yellow; Urine Glucose Negative (Negative); Urine Ketones Negative (Negative); Urine Nitrite Negative (Negative); Urine Protein 1+(30 mg/dL) (Negative); Urine Specific Gravity 1.021 (1.002-1.030); Urine Urobilinogen Positive (Negative)
[2020-09-09 17:25] LABS: Urine Bacteria Absent (Absent); Urine Red Blood Cell 3+(>10/hpf) (Absent); Urine Squamous Epithelial Cell Present (Absent); Urine White Blood Cell Trace(0-5/hpf) (Absent)
[2020-09-09] MEDS: Lactated Ringers 1000 ml BAG 1,000 ML IV SCH (18:22)
[2020-09-10] MEDS: DOXYcycline 100 MG in NS 0.9% 250 ml 250 ML IVPB SCH ×2 (04:56→18:31)
[2020-09-10 04:59] LABS: Hematocrit 38 % (42-52); Mean Corpuscular HGB Conc 35 g/dL (31-36); Mean Corpuscular Hemoglobin 29 pg (27-31); Mean Corpuscular Volume 82 fL (80-94); Platelet Count 32 10^3/uL (150-450); Red Blood Count 4.55 10^6 /uL (4.18-5.48); Red Cell Distribution Width 16 % (10-15); White Blood Count 3.5 10^3/uL (3.5-10.8)
[2020-09-10 05:12] LABS: Albumin 2.8 g/dL (3.2-5.2); Albumin/Globulin Ratio 1.1 (1-3); Calcium 8.1 mg/dL (8.6-10.3); EGFR African American 122.3 (>60); EGFR Non-African American 101.1 (>60); Globulin 2.6 g/dL (2-4); Magnesium 1.9 mg/dL (1.9-2.7); Potassium 3.2 mmol/L (3.5-5.0); Total Bilirubin 1.1 mg/dL (0.2-1.0); Total Protein 5.4 g/dL (6.4-8.9)
[2020-09-10 08:39] LABS: ABS Lymphocytes 1.9 10^3/ul (1.0-4.8); ABS Monocytes 0.5 10^3/ul (0-0.8); ABS Neutrophils 1.1 10^3/ul (1.5-7.7); Eosinophil % 1.1 %; Lymphocyte % 53.2 %; Nucleated Red Blood Cells % 0.7
[2020-09-10] MEDS ORDERED: Vancomycin Trough Check NOTE FOLLOW UP ONE (12:30)
[2020-09-10 22:05] LABS: Anaplasma phagocytophilum Positive (Negative); B. miyamotoi PCR, B Negative (Negative); Babesia divergens/MO-1 Negative (Negative); Babesia ducani Negative (Negative); Ehrlichia chaffeensis Negative (Negative); Ehrlichia ewingii/canis Negative (Negative); Ehrlichia muris eauclairensis Negative (Negative)
[2020-09-11] MEDS: Lactated Ringers 1000 ml BAG 1,000 ML IV SCH (04:43)
[2020-09-11 06:26] LABS: Hematocrit 37 % (42-52); Hemoglobin 12.8 g/dL (14.0-18.0); Mean Corpuscular HGB Conc 35 g/dL (31-36); Mean Corpuscular Hemoglobin 29 pg (27-31); Mean Corpuscular Volume 82 fL (80-94); Mean Platelet Volume 10.4 fL (7.4-10.4); Platelet Count 54 10^3/uL (150-450); Red Blood Count 4.45 10^6 /uL (4.18-5.48); Red Cell Distribution Width 16 % (10-15); White Blood Count 5.2 10^3/uL (3.5-10.8)
[2020-09-11 06:33] LABS: Calcium 8.4 mg/dL (8.6-10.3); EGFR African American 120.5 (>60); EGFR Non-African American 99.6 (>60); Magnesium 1.7 mg/dL (1.9-2.7)
[2020-09-11] MEDS: DOXYcycline 100 MG in NS 0.9% 250 ml 250 ML IVPB SCH ×2 (07:38→19:28)
[2020-09-11 08:14] LABS: ABS Eosinophils 0.1 10^3/ul (0-0.6); ABS Lymphocytes 3.1 10^3/ul (1.0-4.8); ABS Monocytes 0.5 10^3/ul (0-0.8); ABS Neutrophils 1.4 10^3/ul (1.5-7.7); Eosinophil % 2.2 %; Lymphocyte % 60.7 %
[2020-09-11] MEDS ORDERED: Magnesium Sulf 4 GM/100 ML IV 4,000 MG/100 ML BAG IVPB ONE (10:00)
[2020-09-11] MEDS ORDERED: Potassium Chlor 20 meq TAB.ER PO ONE ×2 (10:01→13:00)
[2020-09-12 00:01] LABS: IgG Immunoblot Negative (Negative); IgM Immunoblot Negative (Negative)
[2020-09-12] MEDS: Lactated Ringers 1000 ml BAG 1,000 ML IV SCH (00:49)
[2020-09-12 06:00] LABS: EGFR African American 122.3 (>60); EGFR Non-African American 101.1 (>60); Magnesium 1.9 mg/dL (1.9-2.7); Potassium 3.4 mmol/L (3.5-5.0)
[2020-09-12 06:02] LABS: Hematocrit 36 % (42-52); Hemoglobin 12.3 g/dL (14.0-18.0); Mean Corpuscular HGB Conc 34 g/dL (31-36); Mean Corpuscular Hemoglobin 29 pg (27-31); Mean Corpuscular Volume 83 fL (80-94); Mean Platelet Volume 10.3 fL (7.4-10.4); Platelet Count 77 10^3/uL (150-450); Red Blood Count 4.31 10^6 /uL (4.18-5.48); Red Cell Distribution Width 16 % (10-15); White Blood Count 4.9 10^3/uL (3.5-10.8)
[2020-09-12] MEDS: DOXYcycline 100 MG in NS 0.9% 250 ml 250 ML IVPB SCH (06:04)
[2020-09-12 07:47] LABS: ABS Eosinophils 0.2 10^3/ul (0-0.6); ABS Lymphocytes 3.1 10^3/ul (1.0-4.8); ABS Monocytes 0.5 10^3/ul (0-0.8); ABS Neutrophils 1.2 10^3/ul (1.5-7.7); Eosinophil % 3.1 %; Lymphocyte % 62.5 %; Nucleated Red Blood Cells % 0.3
[2020-09-12 11:49] VITALS: BP 127/80
== END 2020-09-12 14:54 | disposition home or self-care (01) | DRG 872 ==
LOC: ED 09:46 → MEDTELE 14:27
PROVIDERS: ADMIT Hospitalist; ATTEND Internal Medicine